=== PATIENT | female | born 1995 | race American Indian/Alaskan Native ===

== ENCOUNTER 2020-08-25 18:07 | Emergency (ER) | payer MEDICAID ==
[2020-08-25 18:24] VITALS: BP 103/63
[2020-08-26] MEDS ORDERED: ONDANSETRON 4 MG ODT TAB PO ONE (01:33)
[2020-08-26] MEDS ORDERED: predniSONE 20 MG TAB PO ONE (01:33)
[2020-08-26] MEDS ORDERED: ACETAMINOPHEN W/CODEINE 300-30 MG TAB PO ONE (01:33)
[2020-08-26] MEDS ORDERED: AMOXICILLIN/K CLAV 875/125MG TAB PO ONE (01:33)
--- NOTE | 2020-08-26 01:39 | Emergency Department Report ---
ED General Adult HPI - General Chief complaint: Dental/Oral Stated complaint: TOOTHACHE Source: patient Mode of arrival: Ambulatory Limitations: No Limitations - History of Present Illness Initial comments: Patient is a A0 24-year-old -[place] female who is approximately 32 weeks gestation who presents to the ED with worsening left mandibular premolar molar toothache with swollen gums for the last 2 days. Patient states that she has been taking [id number] pain medications with no relief. Patient states that she is unable to eat or chew any food because of severe pain and swelling of the left mandibular gums. Patient denies fever, chills, nausea, vomiting, sore throat, headache, chest pain, shortness of breath, abdominal pain or vaginal bleeding, cough, dizziness or lightheadedness and traumatic injury. MD Complaint: Left mandibular premolar and molar toothache with swollen gums -: Sudden, days(s) (2) Location: mouth Radiation: non-radiation Severity scale (0 -10): 8 Quality: aching, sharp Consistency: constant Improves with: none Worsens with: none Associated Symptoms: denies other symptoms. denies: confusion, chest pain, cough, diaphoresis, fever/chills, headaches, loss of appetite, malaise, nausea/vomiting, rash, seizure, shortness of breath, syncope, weakness Treatments Prior to Arrival: none - Related Data Previous Rx's Medication Instructions Recorded Last Taken Type Acetaminophen/Codeine [Tylenol 1 tab PO Q6H PRN #12 tab 08/26/20 Unknown Rx /Codeine # 3 tab] Clindamycin [Clindamycin CAP] 300 mg PO Q8HR #60 capsule 08/26/20 Unknown Rx Allergies Allergy/AdvReac Type Severity Reaction Status Date / Time No Known Allergies Allergy Unverified 08/25/20 18:25 ED Review of Systems ROS: Stated complaint: TOOTHACHE Other details as noted in HPI Constitutional: denies: chills, fever Eyes: denies: eye pain, eye discharge, vision change ENT: dental pain (left mandibular premolar and molar toothache with swollen gums). denies: ear pain, throat pain Respiratory: denies: cough, shortness of breath, wheezing Cardiovascular: denies: chest pain, palpitations Endocrine: no symptoms reported Gastrointestinal: denies: abdominal pain, nausea, vomiting, diarrhea Genitourinary: denies: urgency, dysuria, discharge Musculoskeletal: denies: back pain, joint swelling, arthralgia Skin: denies: rash, lesions Neurological: denies: headache, weakness, paresthesias Psychiatric: denies: anxiety, depression Hematological/Lymphatic: denies: easy bleeding, easy bruising ED Past Medical Hx - Past Medical History Previous Medical History?: No - Surgical History Past Surgical History?: Yes Additional Surgical History: c section - Medications Home Medications: Home Medications Medication Instructions Recorded Confirmed Last Taken Type Acetaminophen/Codeine [Tylenol 1 tab PO Q6H PRN #12 tab 08/26/20 Unknown Rx /Codeine # 3 tab] Clindamycin [Clindamycin CAP] 300 mg PO Q8HR #60 capsule 08/26/20 Unknown Rx ED Physical Exam - General Limitations: No Limitations General appearance: alert, in no apparent distress - Head Head exam: Present: atraumatic, normocephalic, normal inspection - Eye Eye exam: Present: normal appearance, PERRL, EOMI Pupils: Present: normal accommodation - ENT ENT exam: Present: mucous membranes moist, TM's normal bilaterally, normal external ear exam, other (Swollen, severely tender left lateral mandibular gingiva; severely tender left mandibular premolar and molar teeth) - Neck Neck exam: Present: normal inspection, full ROM, lymphadenopathy. Absent: tenderness - Respiratory Respiratory exam: Present: normal lung sounds bilaterally. Absent: respiratory distress, wheezes, rales, rhonchi, chest wall tenderness, accessory muscle use, decreased breath sounds, other - Cardiovascular Cardiovascular Exam: Present: regular rate, normal rhythm, normal heart sounds. Absent: systolic murmur, diastolic murmur, rubs, gallop - GI/Abdominal GI/Abdominal exam: Present: soft, normal bowel sounds. Absent: tenderness, guarding, hyperactive bowel sounds, hypoactive bowel sounds, organomegaly - Extremities Exam Extremities exam: Present: normal inspection, full ROM, normal capillary refill - Back Exam Back exam: Present: normal inspection, full ROM. Absent: tenderness, CVA tenderness (R), CVA tenderness (L), muscle spasm, paraspinal tenderness, vertebral tenderness - Neurological Exam Neurological exam: Present: alert, oriented X3, CN II-XII intact, normal gait, reflexes normal - Psychiatric Psychiatric exam: Present: normal affect, normal mood - Skin Skin exam: Present: warm, dry, intact, normal color. Absent: rash ED Course Vital Signs 08/25/20 18:24 Temperature 98.4 F Pulse Rate 81 Respiratory 17 Rate Blood Pressure 103/63 [Right] O2 Sat by Pulse 96 Oximetry ED Medical Decision Making - Medical Decision Making This is a A0 24-year-old -[place] female who is approximately 32 weeks gestation who presents to the ED with worsening left mandibular premolar molar toothache with swollen gums for the last 2 days. Patient states that she has been taking [id number] pain medications with no relief. Patient states that she is unable to eat or chew any food because of severe pain and swelling of the left mandibular gums. In the ED, patient is alert and oriented x3 and is not in distress. Patient was treated for pain in the ED and also given initial oral antibiotics. Patient was discharged home on pain medications and oral antibiotics and was advised to follow-up with her dentist in 5 to 7 days for reevaluation or return to the ED immediately if symptoms get worse. - Differential Diagnosis Dental abscess; dental caries; gingivitis; Critical care attestation.: If time is entered above; I have spent that time in minutes in the direct care of this critically ill patient, excluding procedure time. ED Disposition Clinical Impression: Acute gingivitis, Dental abscess, Dental caries Disposition: TO HOME OR SELFCARE Is pt being admited?: No Does the pt Need Aspirin: No Condition: Stable Instructions: Dental Abscess (ED), Gingivitis (ED), Dental Caries (ED) Additional Instructions: Take medication with food, drink plenty of fluids and follow-up with your primary care physician or dentist in 5 to 7 days for reevaluation. Return to ED immediately if symptoms get worse. Prescriptions: Clindamycin [Clindamycin CAP] 300 mg PO Q8HR #60 capsule Acetaminophen/Codeine [Tylenol /Codeine # 3 tab] 1 tab PO Q6H PRN #12 tab PRN Reason: Severe pain Referrals: [facility] [Outside] - 7-10 days Time of Disposition: 01:37 Print Language: [id number]
== END 2020-08-26 02:14 | disposition home or self-care (01) ==
LOC: ED 18:07
DX: O26.893 Other specified pregnancy related conditions, third trimester (principal); K02.9 Dental caries, unspecified; K04.7 Periapical abscess without sinus; K05.00 Acute gingivitis, plaque induced; Z98.890 Other specified postprocedural states; Z3A.32 32 weeks gestation of pregnancy
CPT/HCPCS: 99282; J7512; Q0162